=== PATIENT | female | born 1990 | race Caucasian/White ===

== ENCOUNTER → 2017-03-18 | Outpatient (CLI) | payer BC ==
--- NOTE | 2017-03-18 15:24 | RAD ---
Indication nausea associated with . Grayscale imaging targeted to the right upper quadrant was performed. No prior imaging is available. The visualized pancreas appears normal. The visualized liver also appears normal. That portion of the inferior vena cava which is seen appears normal. The gallbladder is unremarkable. Common bile duct diameter of 3 mm is normal. The right kidney appears unremarkable. IMPRESSION: Normal right upper quadrant abdominal ultrasound exam
--- NOTE | 2017-03-18 15:26 | RAD ---
Indication confirm . An early obstetrical ultrasound examination was performed. No prior imaging is available associated with this . A single viable IUP was identified. heart rate of 150 was documented. The biparietal diameter of 2.3 cm, head circumference of 8.5 cm, abdominal circumference of 6 cm and femoral length of 1 cm are compatible with a gestational age of 13 weeks 2 days. By sonographic analysis the expected date of confinement is 09/21/2017. Because of the early gestational age a survey was not performed. The cervical length is unremarkable at approximately 4.7 cm. IMPRESSION: Single viable IUP of approximately 13 weeks 2 days gestation
== END | disposition home or self-care (01) ==
LOC: US 15:51
PROVIDERS: ATTEND Family Medicine
DX: O21.0 Mild hyperemesis gravidarum (principal); Z3A.13 13 weeks gestation of pregnancy
CPT/HCPCS: 76705; 76801

== ENCOUNTER → 2017-05-07 | Outpatient (CLI) | payer BC ==
--- NOTE | 2017-05-07 16:26 | RAD ---
Indication survey. Note is made of a previous examination 03/18/2017. There is a single viable intrauterine fetus. heart rate of 143 was documented. The placenta is predominantly anterior. The amount of amniotic fluid appears somewhat low. The biparietal diameter of 4.6 cm, head circumference of 17.6 cm, abdominal circumference of 14.3 cm and femoral length of 3.1 cm are compatible with a gestational age of approximately 19 weeks 6 days. By sonographic analysis the expected date of confinement is 09/25/2017 which is in general agreement with previous exam. There was a 4 chambered heart. Only a two-vessel cord was seen. The bladder, stomach, kidneys spine and visualized brain appeared unremarkable. The current presentation is breech. The maternal cervical length is unremarkable at 3.7 cm. IMPRESSION: Single viable intrauterine fetus of approximately 19 weeks 6 days gestation. 2 vessel umbilical cord. The amount of amniotic fluid appears somewhat low..
== END | disposition home or self-care (01) ==
LOC: US 15:45
PROVIDERS: ATTEND Family Medicine
DX: Z34.82 Encounter for supervision of other normal pregnancy, second trimester (principal); Z3A.19 19 weeks gestation of pregnancy
CPT/HCPCS: 76805

== ENCOUNTER 2017-08-27 13:16 | Inpatient (IN) | payer BC ==
[~2017-08-27] VITALS: Ht 157.5 cm; Wt 59.0 kg
[2017-08-27] MEDS ORDERED: IBUPROFEN 800 MG TABLET. PO PRN (14:15)
[2017-08-27] MEDS ORDERED: fentaNYL PF VIAL 100 MCG/2 ML VIAL IV PRN (14:15)
[2017-08-27] MEDS ORDERED: ONDANSETRON PF 4 MG/2 ML VIAL. IV PRN (14:15)
[2017-08-27] MEDS ORDERED: OXYTOCIN 30 UNIT/500 ML PREMIX 500 ML IV PRN ×2 (14:15)
[2017-08-27] MEDS ORDERED: 0.9 % SODIUM CHLORIDE 10 ML DISP.SYRIN. IV PRN (14:15)
[2017-08-27] MEDS ORDERED: LIDOCAINE 1% PF 30 ML VIAL. INJ PRN (14:15)
--- NOTE | 2017-08-27 14:23 | PDOC1 ---
OB - History Hx of Present Care: Good Care Ultrasounds: Abnormal US findings (2 vessel cord, IUGR, Oligohydramnios) Obstetrical Complications: Growth Restriction Medical Complications: None Past Family/Social History * Past Medical, Surgical, Family and Obstetric Histories reviewed from chart. Blood Type: A+ Rubella: Immune RPR/VDRL: Negative GBS Status: Negative HBsAG: Negative OB - Chief Complaint & HPI Date of Admission: Date of Admission: Aug 27, 2017 at 13:16 Chief Complaint/History : 5 Para: 2 EDC: Sep 22, 2017 EGA: 36.2 Reason for admission: induction of labor Indication for induction: medical complication (IUGR, Oligohydramnios, fetus not growing with scans) Admission Nurse Assessment Rev: No Problems: OB - Admission Exam Physical Exam HEENT: Normal, Nasal Mucosa Normal, Oropharynx Normal, Moist Membranes, Fontanelles Normal Heart: Regular Rate Lungs: Clear, Equal Abdomen: Gravid Extremities: Normal Pulses, No tenderness or swelling Reflexes: Normal Cervical Dilatation: None Effacement: 50% Station: -2 Membranes: Intact Heart Rate: Normal Accelerations: Accelerations Present Decelerations: No decelerations Short Term Variability: Present Serology Technician Variability: Moderate Contractions on Admission: None A/P Pt is a 27yo @36.2wga admitted for IOL 2/2 oligohydramnios and IUGR 1)Oligohydramnios 2)IUGR- pt has been following regularly with perinatologist. Received phone call today that fetus is not growing and needs to be induced today. Also discussed with Dr. Sarah, [employer] contact worker lithography who agrees with plan 3)2 vessel cord 4)GBS negative Problems: MIGUEL HART MD Aug 27, 2017 14:23
[2017-08-27 15:45] LABS: HEMATOCRIT 34.9 % (36.0-47.0); HEMOGLOBIN 11.8 g/dL (12.0-15.5); RED BLOOD COUNT 3.63 x10^6/uL (3.50-5.40); RED CELL DISTRIBUTION WIDTH 13.7 % (11.5-14.5); WHITE BLOOD COUNT 7.1 x10^3/uL (4.0-11.0)
[2017-08-27] MEDS ORDERED: DINOPROSTONE 10 MG SUPP.VAG VG ONE ×2 (18:15→19:15)
[2017-08-27] MEDS: IV RINGERS,LACTATED 1000ML 1,000 ML IV SCH ×2 (18:42→22:42)
[2017-08-28] MEDS ORDERED: ROPIVacaine 0.2% IN 0.9%NACL PF 40 MG/20 ML DISP.SYRIN. ONE ×2 (12:00→18:15)
[2017-08-28] MEDS ORDERED: OXYTOCIN in NORMAL SALINE PREMIX 30 UNIT/500 ML BAG. IV ONE (12:00)
[2017-08-28] MEDS: IV RINGERS,LACTATED 1000ML 1,000 ML IV SCH ×3 (13:04→20:27)
[2017-08-28] MEDS ORDERED: NALOXONE 0.4 MG/ML VIAL. IV PRN (18:15)
[2017-08-28] MEDS ORDERED: ONDANSETRON PF 4 MG/2 ML VIAL. IV PRN (18:15)
[2017-08-28] MEDS ORDERED: ROPIVacaine 0.2% PF 10 ML VIAL. EPI ONE (18:15)
[2017-08-28] MEDS ORDERED: L&D EPIDURAL CASSETTE 100 ML EP PRN (18:15)
[2017-08-28] MEDS ORDERED: ePHEDrine PF IN SALINE 50 MG/5 ML DISP.SYRIN IV PRN (18:15)
[2017-08-28] MEDS ORDERED: fentaNYL PF VIAL 100 MCG/2 ML VIAL EPI ONE (18:15)
[2017-08-28] MEDS ORDERED: diphenhydrAMINE 50 MG/ML VIAL IVP ONE (21:15)
--- NOTE | 2017-08-28 22:46 | PDOC ---
VAGINAL DELIVERY DATE DATE: 08/28/17 TIME 2223 : 5 Para: 3 EDC: Sep 22, 2017 EGA: 36.3 VAGINAL DELIVERY: VTX VACCUM ASSISTED: No PLACENTA: Spontaneous 7/9 SEX: Female WEIGHT Weight 2065g or 4 pounds 9oz Nuchal Cord: Yes, Times 1 Amniotic Fluid: Clear PAIN: Epidural EPISIOTOMY: No EXTENSION: No EBL 250cc COMPLICATIONS None CONDITION Stable SOLE LEVELER Dr. Hart Signs of Intrauterine Infectio: None Shoulder Dystocia: No DIAGNOSIS Pt is a 27yo G5 now P3 s/p induced vaginal delivery @36.3wga 2/2 oligohydramnios and IUGR 1)Oligohydramnios/IUGR 2)2 vessel cord 3)GBS negative 4) Problems: MIGUEL HART MD Aug 28, 2017 22:46
[2017-08-28] MEDS ORDERED: ZOLPIDEM 5 MG TABLET. PO PRN (23:00)
[2017-08-28] MEDS ORDERED: SIMETHICONE 80 MG TAB.CHEW PO PRN (23:00)
[2017-08-28] MEDS ORDERED: MAG HYDROX/ALUMINUM HYD/SIMETH 30 ML ORAL.SUSP PO PRN (23:00)
[2017-08-28] MEDS ORDERED: 0.9 % SODIUM CHLORIDE 10 ML DISP.SYRIN. IV PRN (23:00)
[2017-08-28] MEDS ORDERED: MAGNESIUM HYDROXIDE 2,400 MG/30 ML ORAL.SUSP. PO PRN (23:00)
[2017-08-28] MEDS ORDERED: BENZOCAINE 20% TOPICAL AEROSOL SPRAY 57GM CAN. TP PRN (23:00)
[2017-08-28] MEDS ORDERED: OXYTOCIN 30 UNIT/500 ML PREMIX 500 ML IV PRN (23:00)
[2017-08-28] MEDS ORDERED: MMR per PROTOCOL. MC PRN (23:00)
[2017-08-28] MEDS ORDERED: ACETAMINOPHEN 325 MG TABLET. PO PRN (23:00)
[2017-08-28] MEDS ORDERED: HYDROCORTISONE 1% TOPICAL OINTMENT 30GM TUBE. TP PRN (23:00)
[2017-08-28] MEDS ORDERED: PHENYLEPH/MINERAL OIL/PETROLAT RECTAL OINTMENT 28GM TUBE. RC PRN (23:00)
[2017-08-28] MEDS ORDERED: diphenhydrAMINE HCL 25 MG CAPSULE PO PRN (23:00)
[2017-08-29 04:00] VITALS: BP 99/63
[2017-08-29 05:18] VITALS: BP 99/51
[2017-08-29] MEDS ORDERED: FERROUS SULFATE 325 MG TABLET. PO SCH (08:00)
[2017-08-29 09:20] VITALS: BP 104/65
[2017-08-29] MEDS: IBUPROFEN 800 MG TABLET. PO SCH ×2 (09:24→17:21)
[2017-08-29] MEDS: DOCUSATE SODIUM 100 MG CAPSULE. PO PRN (09:24)
--- NOTE | 2017-08-29 10:36 | PDOC ---
OB Progress Note Date of Service 08/29/17 Time of Evaluation 929 Date: 08/28/17 Time: 2223 Notes Pt doing well. Bleeding slightly heavier than a period but no heavy clots. well. Pain well controlled with Ibuprofen. OB VITAL SIGNS: Temperature (98F), Blood Pressure (95/51), Pulse (78) Lab Laboratory Tests Test 08/27/17 15:05 White Blood Count 7.1 x10^3/uL (4.0-11.0) Red Blood Count 3.63 x10^6/uL (3.50-5.40) Hemoglobin 11.8 g/dL (12.0-15.5) Hematocrit 34.9 % (36.0-47.0) Mean Corpuscular Volume 96 fL (79-100) Mean Corpuscular Hemoglobin 33 pg (25-35) Mean Corpuscular Hemoglobin Concent 34 g/dL (31-37) Red Cell Distribution Width 13.7 % (11.5-14.5) Platelet Count 167 x10^3/uL (140-400) Rapid Plasma Reagin Non reactive (Non Reactive) Medications Current Medications Sodium Chloride (Normal Saline Flush) 3 ml QSHIFT PRN IV AFTER MEDS AND BLOOD DRAWS; Start 08/27/17 at 14:15 Ringer's Solution 1,000 ml @ 125 mls/hr Q8H IV Last administered on 08/28/17 20:27; Start 08/27/17 at 14:10 Fentanyl Citrate (Fentanyl 2ml Vial) 100 mcg PRN Q1HR PRN IV Labor pain Last administered on 08/28/17 16:05; Start 08/27/17 at 14:15 Ondansetron HCl (Zofran) 4 mg PRN Q4HRS PRN IV NAUSEA/VOMITING; Start at 14:15; Stop 08/28/17 at 23:01; Status DC Lidocaine HCl 30 ml 1X PRN PRN INJ SEE COMMENTS; Start 08/27/17 at 14:15; Stop 08/29/17 at 14:14 Oxytocin/Sodium Chloride 500 ml @ 0 mls/hr CONT PRN IV SEE I/O RECORD Last administered on 08/27/17 18:43; Start 08/27/17 at 14:15; Stop 08/28/17 at 23: 01; Status DC Oxytocin/Sodium Chloride 500 ml @ 0 mls/hr CONT PRN PRN IV Post delivery bleeding; Start 08/27/17 at 14:15; Stop 08/28/17 at 23:01; Status DC Ibuprofen (Motrin) 800 mg PRN Q6HRS PRN PO PAIN; Start 08/27/17 at 14:15 Dinoprostone (Cervidil) 10 mg 1X ONCE VG ; Start 08/27/17 at 18:15; Stop at 18:16; Status DC Dinoprostone (Cervidil) 10 mg 1X ONCE VG ; Start 08/27/17 at 19:15; Stop at 19:16; Status UNV Ephedrine Sulfate 10 mg PRN Q2MIN PRN IV IF SBP<90; Start 08/28/17 at 18:15 Naloxone HCl (Narcan) 0.04 mg PRN Q1MIN PRN IV SEE COMMENTS; Start 08/28/17 at 18:15 Fentanyl Citrate (Fentanyl 2ml Vial) 100 mcg 1X ONCE EPI Last administered on 08/28/17 18:43; Start 08/28/17 at 18:15; Stop 08/28/17 at 18:17; Status DC Ropivacaine/ Fentanyl/NS 100 ml @ 14 mls/hr CONT PRN EP PAIN Last administered on 08/28/17 18:48; Start 08/28/17 at 18:15 Ondansetron HCl (Zofran) 4 mg PRN Q6HRS PRN IV NAUSEA/VOMITING Last administered on 08/28/17 23:46; Start 08/28/17 at 18:15 Ropivacaine (Naropin 0.2%) 20 ml 1X ONCE EPI ; Start 08/28/17 at 18:15; Stop 08/28/17 at 18:17; Status DC Ropivacaine/ Sodium Chloride 40 mg STK-MED ONCE .ROUTE ; Start 08/28/17 at 18:15 ; Stop 08/28/17 at 18:16; Status DC Diphenhydramine HCl (Benadryl) 12.5 mg STAT ONCE IVP Last administered on 08/28 21:42; Start 08/28/17 at 21:15; Stop 08/28/17 at 21:16; Status DC Sodium Chloride (Normal Saline Flush) 10 ml QSHIFT PRN IV AFTER MEDS AND BLOOD DRAWS; Start 08/28/17 at 23:00 Oxytocin/Sodium Chloride 500 ml @ 62.5 mls/hr CONT PRN IV SEE I/O RECORD; Start 08/28/17 at 23:00; Stop 08/29/17 at 06:59; Status DC Acetaminophen (Tylenol) 650 mg PRN Q6HRS PRN PO MILD PAIN / TEMP; Start at 23:00 Ibuprofen (Motrin) 800 mg Q6HRS PO Last administered on 08/29/17 09:24; Start 08/29/17 at 00:00 Docusate Sodium (Colace) 100 mg PRN BID PRN PO CONSTIPATION Last administered on 08/29/17 09:24; Start 08/28/17 at 23:00 Magnesium Hydroxide (Milk Of Magnesia) 2,400 mg PRN DAILY PRN PO CONSTIPATION; Start 08/28/17 at 23:00 Al Hydroxide/Mg Hydroxide (Mylanta Plus Xs) 30 ml PRN Q4HRS PRN PO HEARTBURN / GAS; Start 08/28/17 at 23:00 Simethicone (Gas-X) 80 mg PRN AFTMEALHC PRN PO GAS / BLOATING; Start 08/28/17 at 23:00 Diphenhydramine HCl (Benadryl) 25 mg PRN Q6HRS PRN PO ITCHING; Start 08/28/17 at 23:00 Benzocaine (Americaine) 1 spray PRN QID PRN TP TOPICAL PAIN; Start 08/28/17 at 23:00 Phenyleph/Shark Oil/Min Oil/Petrol (Preparation H) 1 isabel PRN QID PRN RC RECTAL PAIN; Start 08/28/17 at 23:00 Hydrocortisone (Cortaid) 1 isabel PRN QID PRN TP PERINEAL PAIN; Start 08/28/17 at 23:00 Ferrous Sulfate (Feosol) 325 mg BIDWMEALS PO ; Start 08/29/17 at 08:00 Zolpidem Tartrate (Ambien) 5 mg PRN QHS PRN PO INSOMNIA, MAY REPEAT X1; Start 08/28/17 at 23:00 Info (Do NOT chart on this placeholder) 1 ea 1X PRN PRN MC SEE COMMENTS; Start 08/28/17 at 23:00 Info (Do NOT chart on this placeholder) 1 ea 1X PRN PRN MC SEE COMMENTS; Start 08/28/17 at 23:00 Exam GEN: NAD, AOx3 HEENT: MMM, EOMI, no scleral icterus/injection Cardiac: RRR, no M/R/G Lungs: CTAB, regular breathing rate and effort Abd: soft, non distended, NTTP Ext: no erythema/edema LE bilaterally Neuro: CN2-12 GI Assessment Pt is a 27yo G5 now P3 s/p induced vaginal delivery @36.3wga 2/2 oligohydramnios and IUGR 1)Oligohydramnios/IUGR 2)2 vessel cord 3)GBS negative 4) MIGUEL HART MD Aug 29, 2017 10:36
[2017-08-29 14:35] VITALS: BP 107/63
[2017-08-29 19:43] VITALS: BP 111/72
[2017-08-29 23:47] VITALS: BP 98/62
[2017-08-30] MEDS: IBUPROFEN 800 MG TABLET. PO SCH ×3 (04:40→18:00)
[2017-08-30 06:22] VITALS: BP 80/43
[2017-08-30] MEDS ORDERED: DIPHTH,PERTUSS(ACELL),TET TOX 0.5 ML DISP.SYRIN. VAX IM ONE (09:00)
[2017-08-30 10:30] VITALS: BP 101/62
[2017-08-30 15:12] VITALS: BP 135/69
--- NOTE | 2017-08-30 15:25 | PDOC ---
OB Progress Note Date of Service 08/30/17 Time of Evaluation 1345 Date: 08/28/17 Time: 2223 Notes Pt doing well. Having some cramping with . going well. No concerns. Planning on discharge and boarding tomorrow OB VITAL SIGNS: Temperature (98.2F), Blood Pressure (101/62), Pulse (80), O2 Sat (98%) Lab Laboratory Tests Test 08/29/17 10:35 Hemoglobin 11.9 g/dL (12.0-15.5) Medications Current Medications Sodium Chloride (Normal Saline Flush) 3 ml QSHIFT PRN IV AFTER MEDS AND BLOOD DRAWS; Start 08/27/17 at 14:15; Stop 08/30/17 at 09:30; Status DC Ringer's Solution 1,000 ml @ 125 mls/hr Q8H IV Last administered on 08/28/17 20:27; Start 08/27/17 at 14:10; Stop 08/30/17 at 09:30; Status DC Fentanyl Citrate (Fentanyl 2ml Vial) 100 mcg PRN Q1HR PRN IV Labor pain Last administered on 08/28/17 16:05; Start 08/27/17 at 14:15; Stop 08/30/17 at 09: 30; Status DC Ondansetron HCl (Zofran) 4 mg PRN Q4HRS PRN IV NAUSEA/VOMITING; Start at 14:15; Stop 08/28/17 at 23:01; Status DC Lidocaine HCl 30 ml 1X PRN PRN INJ SEE COMMENTS; Start 08/27/17 at 14:15; Stop 08/29/17 at 14:14; Status DC Oxytocin/Sodium Chloride 500 ml @ 0 mls/hr CONT PRN IV SEE I/O RECORD Last administered on 08/27/17 18:43; Start 08/27/17 at 14:15; Stop 08/28/17 at 23: 01; Status DC Oxytocin/Sodium Chloride 500 ml @ 0 mls/hr CONT PRN PRN IV Post delivery bleeding; Start 08/27/17 at 14:15; Stop 08/28/17 at 23:01; Status DC Ibuprofen (Motrin) 800 mg PRN Q6HRS PRN PO PAIN; Start 08/27/17 at 14:15 Dinoprostone (Cervidil) 10 mg 1X ONCE VG ; Start 08/27/17 at 18:15; Stop at 18:16; Status DC Dinoprostone (Cervidil) 10 mg 1X ONCE VG ; Start 08/27/17 at 19:15; Stop at 19:16; Status UNV Ephedrine Sulfate 10 mg PRN Q2MIN PRN IV IF SBP<90; Start 08/28/17 at 18:15; Stop 08/30/17 at 09:30; Status DC Naloxone HCl (Narcan) 0.04 mg PRN Q1MIN PRN IV SEE COMMENTS; Start 08/28/17 at 18:15; Stop 08/30/17 at 09:30; Status DC Fentanyl Citrate (Fentanyl 2ml Vial) 100 mcg 1X ONCE EPI Last administered on 08/28/17 18:43; Start 08/28/17 at 18:15; Stop 08/28/17 at 18:17; Status DC Ropivacaine/ Fentanyl/NS 100 ml @ 14 mls/hr CONT PRN EP PAIN Last administered on 08/28/17 18:48; Start 08/28/17 at 18:15; Stop 08/30/17 at 09:30 ; Status DC Ondansetron HCl (Zofran) 4 mg PRN Q6HRS PRN IV NAUSEA/VOMITING Last administered on 08/28/17 23:46; Start 08/28/17 at 18:15; Stop 08/30/17 at 09:30 ; Status DC Ropivacaine (Naropin 0.2%) 20 ml 1X ONCE EPI ; Start 08/28/17 at 18:15; Stop 08/28/17 at 18:17; Status DC Ropivacaine/ Sodium Chloride 40 mg STK-MED ONCE .ROUTE ; Start 08/28/17 at 18:15 ; Stop 08/28/17 at 18:16; Status DC Diphenhydramine HCl (Benadryl) 12.5 mg STAT ONCE IVP Last administered on 08/28 21:42; Start 08/28/17 at 21:15; Stop 08/28/17 at 21:16; Status DC Sodium Chloride (Normal Saline Flush) 10 ml QSHIFT PRN IV AFTER MEDS AND BLOOD DRAWS; Start 08/28/17 at 23:00; Stop 08/30/17 at 09:30; Status DC Oxytocin/Sodium Chloride 500 ml @ 62.5 mls/hr CONT PRN IV SEE I/O RECORD; Start 08/28/17 at 23:00; Stop 08/29/17 at 06:59; Status DC Acetaminophen (Tylenol) 650 mg PRN Q6HRS PRN PO MILD PAIN / TEMP; Start at 23:00 Ibuprofen (Motrin) 800 mg Q6HRS PO Last administered on 08/30/17 04:40; Start 08/29/17 at 00:00 Docusate Sodium (Colace) 100 mg PRN BID PRN PO CONSTIPATION Last administered on 08/29/17 09:24; Start 08/28/17 at 23:00 Magnesium Hydroxide (Milk Of Magnesia) 2,400 mg PRN DAILY PRN PO CONSTIPATION; Start 08/28/17 at 23:00 Al Hydroxide/Mg Hydroxide (Mylanta Plus Xs) 30 ml PRN Q4HRS PRN PO HEARTBURN / GAS; Start 08/28/17 at 23:00 Simethicone (Gas-X) 80 mg PRN AFTMEALHC PRN PO GAS / BLOATING; Start 08/28/17 at 23:00 Diphenhydramine HCl (Benadryl) 25 mg PRN Q6HRS PRN PO ITCHING; Start 08/28/17 at 23:00 Benzocaine (Americaine) 1 spray PRN QID PRN TP TOPICAL PAIN; Start 08/28/17 at 23:00 Phenyleph/Shark Oil/Min Oil/Petrol (Preparation H) 1 isabel PRN QID PRN RC RECTAL PAIN; Start 08/28/17 at 23:00 Hydrocortisone (Cortaid) 1 isabel PRN QID PRN TP PERINEAL PAIN; Start 08/28/17 at 23:00 Ferrous Sulfate (Feosol) 325 mg BIDWMEALS PO ; Start 08/29/17 at 08:00; Stop at 09:30; Status DC Zolpidem Tartrate (Ambien) 5 mg PRN QHS PRN PO INSOMNIA, MAY REPEAT X1; Start 08/28/17 at 23:00 Info (Do NOT chart on this placeholder) 1 ea 1X PRN PRN MC SEE COMMENTS; Start 08/28/17 at 23:00 Info (Do NOT chart on this placeholder) 1 ea 1X PRN PRN MC SEE COMMENTS; Start 08/28/17 at 23:00; Stop 08/30/17 at 09:30; Status DC Diphtheria/ Tetanus/Acell Pertussis (Boostrix) 0.5 ml ONCE ONCE VAX IM Last administered on 08/30/17t 10:54; Start 08/30/17 at 09:00; Stop 08/30/17 at 09:01 ; Status DC Exam GEN: NAD, AOx3 HEENT: MMM, EOMI, no scleral icterus/injection Cardiac: RRR, no M/R/G Lungs: CTAB, regular breathing rate and effort Abd: soft, non distended, NTTP Ext: no erythema/edema LE bilaterally Neuro: CN2-12 GI Assessment Pt is a 27yo G5 now P3 s/p induced vaginal delivery @36.3wga 2/2 oligohydramnios and IUGR 1)Oligohydramnios/IUGR 2)2 vessel cord 3)GBS negative 4) MIGUEL HART MD Aug 30, 2017 15:25
[2017-08-30 17:00] VITALS: BP 100/62
[2017-08-30 20:53] VITALS: BP 102/58
[2017-08-31 04:40] VITALS: BP 97/66
[2017-08-31] MEDS: IBUPROFEN 800 MG TABLET. PO SCH ×3 (05:15→13:20)
[2017-08-31] MEDS: DOCUSATE SODIUM 100 MG CAPSULE. PO PRN (08:23)
[2017-08-31] MEDS ORDERED: DOCU-109 PO (09:45)
[2017-08-31] MEDS ORDERED: IBUP800T19 PO (09:45)
--- NOTE | 2017-08-31 09:47 | PDOC3 ---
OB DISCHARGE SUMMARY DATE OF ADMISSION: 08/27/17 DATE OF DISCHARGE: 08/31/17 REASON FOR ADMISSION: Induction of labor PROCEDURES: Mgmt of OB Complications INTRAPARTUM PROCEDURES: Spontanous Vag Deliv, Perineal Laceration DISCHARGE DIAGNOSIS: Others ( Delivered) DISCHARGE INFORMATION: Activity (As tolerated), Diet (Regular), Medications ( Ibuprofen 800mg q6H, Docusate 100mg qday), Instructions (Please follow up with Dr. Hart in 4-6 weeks), Discharge to (Home) HOSPITAL COURSE Pt is a 27yo G5 now P3 s/p induced vaginal delivery @36.3wga 2/2 oligohydramnios and IUGR 1)Oligohydramnios/IUGR 2)2 vessel cord 3)GBS negative 4) MIGUEL HART MD Aug 31, 2017 09:47
[2017-08-31 13:22] VITALS: BP 96/59
--- NOTE | 2017-09-02 13:11 | PATHOLOGY ---
PATHOLOGY REPORT * * * * * * * * FINAL DIAGNOSIS: 265 gram late placenta of an estimated 36 weeks gestation with attached membranes and umbilical cord: - Two-vessel umbilical cord (Single umbilical artery). - Small for gestational age placenta (less than 3rd percentile). 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 - Mild villous edema, focal. (JPM:mgr; 09/02/2017) REPORT ELECTRONICALLY SIGNED BY: Abdiel Palacios M.D. DATE/TIME: 09/02/2017 13:10 * * * * * * * * GROSS PATHOLOGY: Received in formalin labeled "Sadie De Los Santos, placenta," is a torres placenta, with attached membranes and umbilical cord. The trimmed placental weight is 265 grams and the disc measures 13.6 x 11.8 x 2.8 cm. The membranes are tomas-boogie and translucent, and the site of membrane rupture is 5.0 cm from the placental margin. The surface is blue-tomas and displays its normal arborizing vasculature. The 2 vessel umbilical cord measures 32.5 x 1.0 cm and inserts eccentrically, 3.0 cm from the closest placental margin. The umbilical cord shows decreased twisting. The maternal surface shows intact cotyledons; minimal blood coagulum is seen on the surface. Sectioning reveals maroon-red and spongy parenchyma. Sections are submitted as follows: A1: Membrane Roll A2: Umbilical cord and periphery A3: Maternal A4: (SDY; 09/01/2017) INITIAL CPT CODE(S): A; 82134 Professional services performed by [facility] at [address] [address] Technical services performed by [facility] at [address] [place] [address], [address], [place] [address]. SPECIMEN(S) RECEIVED: A.Placenta CLINICAL HISTORY: IUGR, vaginal delivery of 4lb 9oz female @ 2224 on 08/28/17, apgars 7-9-9, severe oligohydramnios, 2 vessel cord, PATIENT: SADIE DE LOS SANTOS /AGE: 906/11/1990 (Age: 27) PATIENT #: [id number] ALT CASE #: SPECIMEN COLLECTION DATE: 08/28/2017 SPECIMEN RECEIVED DATE: 08/31/2017 [facility] - [id number] [address] - PHONE: [phone] * * * END OF REPORT * * *
== END 2017-08-31 15:39 | disposition home or self-care (01) | DRG 775 ==
LOC: 3 SO LND 13:16 → 3 NORTH 08-29 04:00
PROVIDERS: ADMIT Family Medicine; ATTEND Family Medicine
PROC: 10E0XZZ Delivery of Products of Conception, External Approach (ICD-10-PCS; principal; 2017-08-28)
PROC: 3E0R3BZ Introduction of Anesthetic Agent into Spinal Canal, Percutaneous Approach (ICD-10-PCS; 2017-08-28)
PROC: 00HU33Z Insertion of Infusion Device into Spinal Canal, Percutaneous Approach (ICD-10-PCS; 2017-08-28)
DX: O41.03X0 Oligohydramnios, third trimester, not applicable or unspecified (principal); O36.5930 Maternal care for other known or suspected poor fetal growth, third trimester, not applicable or unspecified; Z37.0 Single live birth; Z3A.36 36 weeks gestation of pregnancy; O69.81X0 Labor and delivery complicated by cord around neck, without compression, not applicable or unspecified; O70.9 Perineal laceration during delivery, unspecified
CPT/HCPCS: 36415; 85018; 85027; 86592; 86593; 86850; 86900; 86901; 88307; 90715; J1200; J2405; J2590; J2795; J3010; J7120